=== PATIENT | male | born 1960 | race Caucasian/White ===

== ENCOUNTER → 2025-07-30 07:33 | Outpatient (REF) | payer BC, SELFPAY ==
[2025-07-30 08:50] LABS: HDL Cholesterol 45 mg/dl; LDL Cholesterol, Calculated 60 mg/dl; Very Low Density Lipoprotein 22 mg/dl (0-30)
== END ==
LOC: REG 07:33
PROVIDERS: ATTENDING PHYSICIAN Internal Medicine
DX: E78.00 Pure hypercholesterolemia, unspecified (principal)
CPT/HCPCS: 36415; 80061